=== PATIENT | female | born 1970 | race African-American/Black ===

== ENCOUNTER 2016-06-23 15:34 | Emergency (ER) | payer OTHER ==
[~2016-06-23] VITALS: Ht 165.1 cm; Wt 98.4 kg
[2016-06-23 15:51] VITALS: BP 110/66
[2016-06-23] MEDS ORDERED: Tylenol #4 Tab (300mg/60mg) ORAL ONE (16:15)
[2016-06-23] MEDS ORDERED: Ketorolac 30mg Inj IM ONE (16:15)
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
[2016-06-23] MEDS ORDERED: NAPROSYN500 M1 ORAL (17:27)
[2016-06-23] MEDS ORDERED: ROBAXIN-750750 MG PO (17:27)
[2016-06-23 17:35] VITALS: BP 115/81
--- NOTE | 2016-06-24 14:26 | Diagnostic Imaging Report ---
Indication: PAIN Technique: 3 views of the cervical spine Comparison: none Findings: Exam is limited as the lateral view is somewhat blurry. Technologist report patient was unable to position optimally no prevertebral soft tissue swelling. There is straightening of the normal cervical lordosis, otherwise normal bony alignment. Vertebral body heights are preserved. There is degenerative disc narrowing at C5-6. The remaining disc spaces are preserved. Impression: Somewhat limited No acute bony trauma Degenerative change, as described
== END 2016-06-23 17:35 | disposition home or self-care (01) ==
LOC: EMR 17:00
DX: G44.201 Tension-type headache, unspecified, intractable (principal); S16.1XXA Strain of muscle, fascia and tendon at neck level, initial encounter; R42 Dizziness and giddiness; V43.52XA Car driver injured in collision with other type car in traffic accident, initial encounter; Y93.9 Activity, unspecified; Y92.410 Unspecified street and highway as the place of occurrence of the external cause; Z88.0 Allergy status to penicillin; Z91.011 Allergy to milk products
CPT/HCPCS: 70450; 72040; 96372; 99284